=== PATIENT | female | born 1935 | race Caucasian/White ===

== ENCOUNTER 2022-03-07 10:41 | Outpatient (CLI) | payer MEDICARE, BC, SELFPAY | END 2022-03-07 10:42 | disposition home or self-care (01) | LOC: INJ CL 10:42 | PROVIDERS: PCP Family Medicine; Visit Provider Family Medicine | DX: M54.16 Radiculopathy, lumbar region (principal); M48.062 Spinal stenosis, lumbar region with neurogenic claudication | CPT/HCPCS: 62323; J0702; Q9966 ==

== ENCOUNTER 2022-03-29 17:20 | Inpatient (IN) | payer MEDICARE, BC, SELFPAY ==
[2022-03-29] VITALS (10 sets, daily range): BP systolic 86–144; BP diastolic 54–124; PULSE 54–147; RESP 18–20; TEMP 36.6–37; O2SAT 92–96; BMI 23.9; BMI 24.7
--- NOTE | 2022-03-29 17:48 | ED.NURSE ---
1745 #20 sl placed R ac, blood drawn off iv start. ekg done, shows afibe 120's, pt placed on heart monitor.
--- NOTE | 2022-03-29 18:00 | ED_ITS ---
HPI - General Adult General Chief complaint: Arrhythmia/Palpitations Stated complaint: High BP and HR Time Seen by Provider: 03/29/22 17:42 History of Present Illness HPI narrative: This 86-year-old female comes in reporting generalized fatigue for the past several days. She has also had some pedal edema for several weeks. She checked her blood pressure and noted that her heart rate was increased. She does not report any chest pain or lightheadedness. She does have some mild shortness of breath with exertion. Related Data Allergies Allergy/AdvReac Type Severity Reaction Status Date / Time ciprofloxacin [From Cipro] Allergy Verified 03/29/22 17:42 gabapentin Allergy Verified 03/29/22 17:42 minocycline [From Minocin] Allergy Verified 03/29/22 17:42 omnicef Allergy Uncoded 03/29/22 17:42 Review of Systems Status of ROS: Reports: 10 or more systems reviewed and unremarkable except as noted in History and below Narrative: Constitutional: No fevers. She does report some weight gain over the past. Few weeks. Eyes: No discharge. No vision changes. HENT: No congestion, no sore throat, no ear pain. Cardiovascular: No chest pain, no palpitations. Respiratory: No shortness of breath, no wheezes, no cough. Gastrointestinal: No abdominal pain, no vomiting, no diarrhea. Genitourinary: No dysuria, no hematuria. Musculoskeletal: Normal range of motion. Skin: No rashes, no pruritis. Neurological: No dizziness, weakness, sensory change, speech change. Endo/Heme/Allergies: No bruising or bleeding. No polydipsia. Pysch: no suicidality, no anxiety, no insomnia. All other systems reviewed and are negative. PFSH PFS Medical History (Updated 03/29/22 @ 19:12 by Jorden Perez MD) DDD (degenerative disc disease) Hypertension IBS (irritable bowel syndrome) Mitral valve disorder Osteoporosis Surgical History (Updated 03/29/22 @ 18:00 by Shilpa Gonzáles RN) S/P lumbar fusion Social History Smoking Status: Former smoker How often do you have a drink containing alcohol: never AUDIT-C Alcohol total score: 0 Non-prescribed substance use: denies use Exam Narrative: Exam Narrative: Constitutional: Well-developed, well-nourished, no acute distress. HEENT: Normocephalic, atraumatic. Neck: Normal range of motion. Nontender. Supple. Heart: Irregular. No murmurs. Tachycardia. Intact distal pulses. Lungs: Clear to auscultation. No chest discomfort. No wheezes, rhonchi, or rales. Abdomen: Normal bowel sounds. Nontender. No rebound tenderness. Genitalia: Deferred. Back: No midline tenderness. Normal range of motion. Extremities: Normal range of motion. No injury. Bilateral pedal edema. Skin: Intact. No rash. Warm. No erythema or pallor. Neurologic: No altered sensation. No weakness. Alert and oriented. Psychiatric: No suicidality. No anxiety or depression. No insomnia. Nursing notes and vitals signs are reviewed. Const: Vital Signs, click to edit/add: Vital Signs - 24 hr 03/29/22 17:26 03/29/22 18:13 03/29/22 18:38 Temperature 98.6 F Pulse Rate [Apical ] 147 H 104 H 54 L Respiratory Rate 18 20 Blood Pressure [Le ft Upper Arm] 144/124 H 140/108 H 93/54 L Pulse Oximetry 93 92 92 Oxygen Delivery Me thod Room Air Room Air Room Air 03/29/22 18:32 Temperature Pulse Rate [Apical ] 56 L Respiratory Rate 18 Blood Pressure [Le ft Upper Arm] 86/56 L Pulse Oximetry 92 Oxygen Delivery Me thod Room Air Course Vital Signs Vital signs: Initial Vital Signs Temperature 98.6 F 03/29/22 17:26 Temperature Source Temporal Artery Scan 03/29/22 17:26 Pulse Rate 147 H 03/29/22 17:26 Pulse Rhythm 03/29/22 17:26 Respiratory Rate 18 03/29/22 17:26 Blood Pressure 144/124 H 03/29/22 17:26 Blood Pressure Mean 130 03/29/22 17:26 Pulse Oximetry 93 03/29/22 17:26 Oxygen Delivery Method 03/29/22 17:26 Vital Signs Temperature 98.6 F 03/29/22 17:26 Pulse Rate 147 H 03/29/22 17:26 Respiratory Rate 18 03/29/22 17:26 Blood Pressure 144/124 H 03/29/22 17:26 Pulse Oximetry 93 03/29/22 17:26 Oxygen Delivery Method 03/29/22 17:26 Temperature 98.6 F 03/29/22 17:26 Pulse Rate 54 L 03/29/22 18:38 Respiratory Rate 18 03/29/22 18:32 Blood Pressure 93/54 L 03/29/22 18:38 Pulse Oximetry 92 03/29/22 18:38 Oxygen Delivery Method 03/29/22 18:38 Medical Decision Making MDM Narrative Medical decision making narrative: This 86-year-old female arrives with new onset atrial fibrillation with rapid ventricular response. She has not had any chest pain. An IV was established and labs were drawn. The patient received 20 mg of diltiazem intravenously. This brought her heart rate down into the 50s. A bit later her blood pressure also decreased to at 1 point a systolic value of 86. She did have some associated lightheadedness. She then received 500 mL of IV normal saline over 1 hour. Her B type natriuretic peptide is significantly elevated at 2700. I did speak to the hospitalist cardiothoracic surgeon, Dr. Caldwell, who will arrange for her admission for purposes of rate control, anticoagulation, and diuresis. Lab Data Labs: Lab Results 03/29/22 03/29/22 03/29/22 Range/Units 17:45 17:45 17:45 WBC 8.05 (4.50-11.00) K/uL RBC 5.08 (4.00-5.20) m/uL Hgb 14.9 (12.0-16.0) gm/dL Hct 44.1 (33.0-51.0) % MCV 87 (80-100) fL MCH 29 (26-34) pg MCHC 34 (32-36) gm/dL RDW Coeff of Ilsa 13.8 (11.5-15.5) % Plt Count 260 (140-440) K/uL Neut % (Auto) 60.8 (42.0-72.0) % Lymph % (Auto) 19.5 L (20-44) % [place] % (Auto) 13.3 H (0.0-11.0) % Eos % (Auto) 5.5 (0.0-7.0) % Baso % (Auto) 0.7 (0.0-3.0) % Neut # (Auto) 4.89 (1.7-7.0) K/uL Lymph # (Auto) 1.60 (0.90-2.90) K/uL [place] # (Auto) 1.10 H (0.00-0.90) K/UL Eos # (Auto) 0.44 (0.00-0.50) K/uL Baso # (Auto) 0.06 (0.00-0.30) K/uL Abs Immat Gran (auto) 0.02 (0.00-0.30) K/uL INR 1.06 (0.91-1.10) Sodium 131 L (135-149) mmol/L Potassium 4.1 (3.6-5.1) mmol/L Chloride 97 (96-114) mmol/L Carbon Dioxide 23 (20-32) mmol/L BUN 18 (7-30) mg/dL Creatinine 0.8 (0.5-1.5) mg/dL Estimated Creat Clear 33.41 Estimated GFR 72 ml/min Glucose 140 H (60-115) mg/dL Calcium 9.9 (8.4-10.6) mg/dL NT-Pro-B Natriuret Pep (0-450) PG/mL POC Troponin I (0.01-0.04) ng/ml 03/29/22 03/29/22 Range/Units 17:45 17:45 WBC (4.50-11.00) K/uL RBC (4.00-5.20) m/uL Hgb (12.0-16.0) gm/dL Hct (33.0-51.0) % MCV (80-100) fL MCH (26-34) pg MCHC (32-36) gm/dL RDW Coeff of Ilsa (11.5-15.5) % Plt Count (140-440) K/uL Neut % (Auto) (42.0-72.0) % Lymph % (Auto) (20-44) % [place] % (Auto) (0.0-11.0) % Eos % (Auto) (0.0-7.0) % Baso % (Auto) (0.0-3.0) % Neut # (Auto) (1.7-7.0) K/uL Lymph # (Auto) (0.90-2.90) K/uL [place] # (Auto) (0.00-0.90) K/UL Eos # (Auto) (0.00-0.50) K/uL Baso # (Auto) (0.00-0.30) K/uL Abs Immat Gran (auto) (0.00-0.30) K/uL INR (0.91-1.10) Sodium (135-149) mmol/L Potassium (3.6-5.1) mmol/L Chloride (96-114) mmol/L Carbon Dioxide (20-32) mmol/L BUN (7-30) mg/dL Creatinine (0.5-1.5) mg/dL Estimated Creat Clear Estimated GFR ml/min Glucose (60-115) mg/dL Calcium (8.4-10.6) mg/dL NT-Pro-B Natriuret Pep 2720 H (0-450) PG/mL POC Troponin I 0.00 L (0.01-0.04) ng/ml ECG Data Interpretation: Atrial fibrillation with rapid ventricular response. Rate is 126 beats per minute. There are no specific ST or T-wave abnormalities. Discharge Plan Discharge Clinical Impression: Congestive heart failure (CHF), Atrial fibrillation Condition: Unchanged Follow Up/Referrals: Samantha Branch MD [Primary Care Provider] - Stand Alone Forms: [employer] Info Instructions
[2022-03-29 18:08] LABS: Basophils Absolute Auto 0.06 K/uL (0.00-0.30); Basophils Percent Auto 0.7 % (0.0-3.0); Eosinophils Absolute Auto 0.44 K/uL (0.00-0.50); Eosinophils Percent Auto 5.5 % (0.0-7.0); Hematocrit 44.1 % (33.0-51.0); Hemoglobin* 14.9 gm/dL (12.0-16.0); Immature Granulocytes Abs Auto 0.02 K/uL (0.00-0.30); Lymphocytes Percent Auto 19.5 % (20-44); Mean Corpuscular HGB Conc 34 gm/dL (32-36); Mean Corpuscular Hemoglobin 29 pg (26-34); Mean Corpuscular Volume 87 fL (80-100); Monocytes Percent Auto 13.3 % (0.0-11.0); Neutrophils Absolute Auto 4.89 K/uL (1.7-7.0); Neutrophils Percent Auto 60.8 % (42.0-72.0); Platelet Count* 260 K/uL (140-440); RDW Coefficient of Variation % 13.8 % (11.5-15.5); Red Blood Count 5.08 m/uL (4.00-5.20); White Blood Count* 8.05 K/uL (4.50-11.00)
[2022-03-29 18:11] LABS: Slide Review Reflex No
[2022-03-29] MEDS: dilTIAZem 5 MG/ML inj 20 MG IVP (18:15)
[2022-03-29 18:20] LABS: Chloride* 97 mmol/L (96-114); Potassium* 4.1 mmol/L (3.6-5.1); Sodium* 131 mmol/L (135-149)
--- NOTE | 2022-03-29 18:20 | ED.NURSE ---
diltiazem iv given, HR immediately decreased to 70's, rhythm remains a-fib
[2022-03-29 18:23] LABS: Blood Urea Nitrogen* 18 mg/dL (7-30); Calcium* 9.9 mg/dL (8.4-10.6); Carbon Dioxide* 23 mmol/L (20-32); Creatinine* 0.8 mg/dL (0.5-1.5); Est. Creatinine Clearance* 33.41; Estimated Glomerular Filt Rate 72 ml/min; Glucose* 140 mg/dL (60-115)
[2022-03-29 18:24] LABS: INR 1.06 (0.91-1.10); Prothrombin Time 14.2 Seconds
[2022-03-29 18:33] LABS: NT Pro B Type NatriureticPept* 2720 PG/mL (0-450)
[2022-03-29] MEDS: 0.9 % SODIUM CHLORIDE 500 ML 500 ML IV (18:37)
--- NOTE | 2022-03-29 18:37 | ED.NURSE ---
pt HR remains 50-60, bp 86/56. dr. grullon updated. 500 cc ns bolus given.
--- NOTE | 2022-03-29 19:20 | ED.NURSE ---
pt chronic back pain, pt standing up and sitting on bedside. denies dizziness. states feels better standing. dr. marmolejo in seeing pt.
--- NOTE | 2022-03-29 19:57 | W.PC.EDHO ---
Primary Language: Preferred Language: Orientation Status: [x] Alert & Oriented [] Slight Confusion [] Known Dx Dementia Transfers By: [x] Assist of 1 [] Assist of 2 [] Lift Active Medications Discontinued Medications Generic Name Dose Route Start Last Admin Trade Name Tika PRN Reason Stop Dose Admin Diltiazem HCl 20 mg 03/29/22 17:58 03/29/22 18:15 Diltiazem 5 Mg/Ml Inj IVP 03/29/22 17:59 20 mg ONCE ONE Administration Sodium Chloride 500 mls @ 500 mls/hr 03/29/22 18:34 03/29/22 19:23 0.9 % Sodium Chloride 500 Ml IV 03/29/22 19:33 Infused .Q1H ONE Infusion Description of Symptoms ED Triage Present Problem reports that she has been having an elevated bp Description and heart rate at home today. has felt sob some. feels weak, lack of energy, fatigued. comes to ed with her daughter demario. was able to use walker to room. ED Triage Date of Onset of 03/26/22 Symptoms Female History Patient No Pain Pain Radiation Location [Lower to legs Back] Pain Intensity [Lower Back] 7 Pain Scale Used [Lower Back] Numeric (1 - 10) Oxygen Administration Pulse Oximetry 96 Pulse Oximetry 95 Pulse Oximetry 92 Pulse Oximetry 92 Pulse Oximetry 92 Pulse Oximetry 93 Oxygen Delivery Method Room Air Oxygen Delivery Method Room Air Oxygen Delivery Method Room Air Oxygen Delivery Method Room Air Oxygen Delivery Method Room Air Oxygen Delivery Method Room Air Cardiac Monitoring EKG Method Skycatch EKG Method 12 Lead
[2022-03-29 20:09] LABS: SARS PCR* Negative SARS-CoV-2 (Negative)
--- NOTE | 2022-03-29 20:23 | PM.IMHP1 ---
Hospitalist- H&P: HPI History of Present Illness Time Seen by Provider: 20:00 Date Seen: 03/29/22 Chief complaint: High BP and HR Narrative: Susanne Downs is a 86 year old female who presented to the emergency room with her daughter Samantha today after noting an elevated heart rate at home. Susanne endorses feeling poorly for the last 4-5 days, feeling fatigued with intermittent dyspnea. She has also noted worsening of her chronic lower extremity edema over the past few days. Today she checked her BP at home, and noted that her pulse was very elevated. She has not had any dizziness, lightheadedness, or chest pain. Specifically denies orthopnea or PND. No recent illness, no fevers. ER course and findings: - AFib with RVR on EKG - Rate improved after IV diltiazem in the emergency room, then became hypotensive. BP improved with gentle IVF rehydration - sodium 131 (this is her baseline as an outpatient, per chart review) - TSH pending Patient feels better with her lower heart rate. Given new onset atrial fibrillation with RVR, admitted to the hospital for medication management and monitoring. Susanne has no history of atrial fibrillation. Her past medical history lists a remote mitral valve disorder, although she is unable to elaborate on this further. No recent TTE. No history of blood clots. She also has essential hypertension, treated with lisinopril and metoprolol. Other notable medical history includes chronic degenerative disc disease of the lumbar spine. She is status post fusion at L3-L5, and follows with Dr. Hebert of sports medicine regularly. Most recent ADI was 03/07/22 (L1-L2). She takes daily Trinity and Lyrica for pain control. Susanne is , lives independently at [facility], [place]. Her daughter Samantha lives locally and would be medical decision maker if needed. 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 She has had four COVID vaccines. Review of Systems Status of ROS: Reports: 10 or more systems reviewed and unremarkable except as noted in History and below Narrative: Previous history of recurrent UTIs, no recent symptoms. Thinks she has had some weight gain, primarily fluid in nature. [facility] Medical History (Updated 03/29/22 @ 20:34 by Sarah Caldwell MD) Chronic back pain greater than 3 months duration DDD (degenerative disc disease) Hypertension IBS (irritable bowel syndrome) Mitral valve disorder Osteoporosis Surgical History (Updated 03/29/22 @ 18:00 by Shilpa Gonzáles RN) S/P lumbar fusion Social History Smoking Status: Former smoker How often do you have a drink containing alcohol: never AUDIT-C Alcohol total score: 0 Non-prescribed substance use: denies use Meds Home Medications and Allergies Home Medications Medication Instructions Recorded Confirmed Type hydrocodone 7.5 mg-acetaminophen 1 tab PO QID PRN 03/29/22 03/29/22 History 325 mg tablet levothyroxine 75 mcg tablet 75 mcg PO DAILY 03/29/22 03/29/22 History lisinopril 10 mg tablet 10 mg PO DAILY 03/29/22 03/29/22 History metoprolol succinate 100 mg 100 mg PO DAILY 03/29/22 03/29/22 History tablet,extended release 24 hr prednisolone acetate 1 % eye 1 drp ophthalmic (eye) DAILY 03/29/22 03/29/22 History drops,suspension pregabalin 75 mg capsule 75 mg PO Q8H 03/29/22 03/29/22 History Allergies Allergy/AdvReac Type Severity Reaction Status Date / Time cefdinir [From Omnicef] Allergy Unknown Verified 03/29/22 20:10 ciprofloxacin [From Cipro] Allergy Verified 03/29/22 17:42 gabapentin Allergy Verified 03/29/22 17:42 minocycline [From Minocin] Allergy Verified 03/29/22 17:42 Exam Narrative: Exam Narrative: GEN: Alert and oriented, answering questions appropriately. Speaking in full sentences HEENT: Normal external ears, EOMIs bilaterally, no scleral icterus CV: Irregularly irregular rhythm with rate in the 80s during my exam, no concerning murmurs, rubs, or gallops R: Air movement adequate, no wheezing. Fine bibasilar crackles Ext: Edema of bilateral lower extremities, 1 to 2+, up to mid-wolf Skin: No concerning skin lesions or rashes on exposed skin Neuro: Nonfocal, no resting tremor, using walker for ambulation Psych: Appropriate Const: Vital Signs, click to edit/add: Vital Signs - 24 hr 03/29/22 17:26 03/29/22 18:13 03/29/22 18:38 Temperature 98.6 F Pulse Rate [Apical ] 147 H 104 H 54 L Respiratory Rate 18 20 Blood Pressure [Le ft Upper Arm] 144/124 H 140/108 H 93/54 L Pulse Oximetry 93 92 92 Oxygen Delivery Me thod Room Air Room Air Room Air 03/29/22 18:32 03/29/22 19:00 03/29/22 19:30 Temperature Pulse Rate [Apical ] 56 L 65 61 Respiratory Rate 18 18 Blood Pressure [Le ft Upper Arm] 86/56 L 90/70 115/70 Pulse Oximetry 92 95 96 Oxygen Delivery Me thod Room Air Room Air Room Air 03/29/22 20:00 Temperature Pulse Rate [Apical ] 77 Respiratory Rate Blood Pressure [Le ft Upper Arm] 117/71 Pulse Oximetry 95 Oxygen Delivery Me thod Room Air Hospitalist - H&P: Result Labs Labs: Short CBC 03/29/22 Range/Units 17:45 WBC 8.05 (4.50-11.00) K/uL Hgb 14.9 (12.0-16.0) gm/dL Hct 44.1 (33.0-51.0) % Plt Count 260 (140-440) K/uL BMP 03/29/22 17:45 Sodium 131 L Potassium 4.1 Chloride 97 Carbon Dioxide 23 BUN 18 Creatinine 0.8 Glucose 140 H Calcium 9.9 Assessment and Plan Assessment and plan (1) Atrial fibrillation: Status: Acute Assessment and Plan: New onset with RVR in the emergency room. Rate improved with IV diltiazem, then had mild hypotension. Admit to the hospital, telemetry monitoring, start p.o. diltiazem for rate control. Decrease home dose of Metoprolol and hold lisinopril to prevent iatrogenic hypotension. TTE ordered given clinical concern for CHF. Start Lasix in the morning, as patient appears clinically fluid overloaded. Discussion regarding anticoagulation held with patient and daughter. CHADs-VASC score of 4-5, her her patient willing to initiate anticoagulation. After risk and benefit discussion, she would like to initiate Xarelto as an anticoagulant. (2) Chronic back pain greater than 3 months duration: Status: Acute Assessment and Plan: Continue home medications. (3) Hypertension: Status: Acute Assessment and Plan: Med changes per above given iatrogenic hypotension in the emergency room. (4) Hyponatremia: Status: Acute Assessment and Plan: Chronic per chart review, may improve with diuresis and CHF management. Plan Dispo: Patient lives independently, plans to return to her apartment upon discharge. Social work consult placed as she may need some assistance upon discharge (home health, meals on wheels, etc) Prophylaxis: Xarelto per above Code: Patient requests full code status
[2022-03-29] MEDS: PREGABALIN 75 MG CAPSULE PO (21:59)
[2022-03-29] MEDS: dilTIAZem 120 MG CAP.ER.24H PO (21:59)
[2022-03-29] MEDS: HYDROCODONE/ACETAMIN 7.5-325 TABLET 1 TAB PO (22:00)
[2022-03-29] MEDS: RIVAROXABAN 10 MG TABLET 20 MG PO (22:00)
[2022-03-30] MEDS: HYDROCODONE/ACETAMIN 7.5-325 TABLET 1 TAB PO ×3 (03:54→18:30)
[2022-03-30 03:56] VITALS: BP 136/82; PULSE 78; RESP 16; TEMP 36.4; O2SAT 91
--- NOTE | 2022-03-30 05:55 | PC.NURSE ---
ADMISSION/SHIFT NOTE: Pt to room 257 for new onset afib. Pt A&O, cooperative, up SBA with walker and tolerating well. PRN [place] and scheduled Lyrica given for chronic back/leg pain with pt reporting relief. Tele reads a-fib, rate controlled. Pt denies CP. Pt has slight SOB with exertion that improves at rest. Denies N/V.
[2022-03-30 07:00] VITALS: BP 150/91; PULSE 73; PULSE 88; RESP 20; TEMP 36.6; O2SAT 93
[2022-03-30] MEDS: LEVOTHYROXINE 75 MCG TABLET PO (07:23)
[2022-03-30] MEDS: PREGABALIN 75 MG CAPSULE PO ×2 (09:08→17:35)
[2022-03-30] MEDS: dilTIAZem 120 MG CAP.ER.24H PO (09:08)
[2022-03-30] MEDS: FUROSEMIDE 40 MG TABLET PO (09:08)
[2022-03-30 11:00] VITALS: BP 125/62; PULSE 56; RESP 18; TEMP 36.6; O2SAT 94
[2022-03-30] MEDS: lisinopriL 5 MG TABLET PO (12:21)
[2022-03-30] MEDS: METOPROLOL SUCCINATE (XL) 50 MG TAB PO (12:21)
--- NOTE | 2022-03-30 13:03 | PM.IMPN1 ---
Progress Note: A&P Assessment and plan (1) Atrial fibrillation: Status: Acute Assessment and Plan: 1. Rate now controlled. Currently on diltiazem extended release 120 mg once daily. 2. She was started on rivaroxaban for anticoagulation yesterday and tolerating. Continue the same. (2) Chronic back pain greater than 3 months duration: Status: Acute (3) Hypertension: Status: Acute Assessment and Plan: 1. Her metoprolol succinate 100 mg daily doses currently on hold. I will decrease this dose by 50%. 2. Her lisinopril dose is also currently on hold. I will also decrease this by 50%. (4) Hyponatremia: Status: Acute Assessment and Plan: 1. Reportedly this is a long standing problem for her and stable. (5) Congestive heart failure (CHF): Status: Acute Assessment and Plan: 1. Initiate furosemide today. 2. Daily weights. 3. Obtain transthoracic echocardiogram today. Plan 1. Reviewed my impressions with the patient. Answered her questions to her satisfaction. 2. Continue with above stated plans and recommendations for now. 3. If her condition continues to stabilize it is possible she might be ready to be discharged home as early as tomorrow with appropriate outpatient follow-up. 4. Patient agreeable to above stated plans and recommendations. Time Spent With Patient Total time spent: 30 minutes Subjective Time Seen by Provider: 08:00 Date Seen: 03/30/22 Interval history: Hospital day 2. Dyspnea with exertion has not improved. Dyspnea has not worsened either. Denies paroxysmal nocturnal dyspnea orthopnea. Did not sleep much last night, mainly because of the new surroundings in the hospital. Denies chest heaviness, pressure, tightness, or pain. Denies syncope or near-syncope. Denies orthostasis. Denies nausea or vomiting. Denies palpitations. Edema of lower extremities has not worsened or improved. Exam Narrative: Exam Narrative: Does not appear to be in any acute distress. Certainly has tachypnea with mild exertion including ambulating from bathroom sink back to her bed when I was assessing her. With this minimal amount of exertion her respiratory rate was up to 24. Alert, oriented to self, place, time, situation. Articulate. Cooperative. Friendly. Mood and affect are congruent. No icterus or jaundice. In the upright position she has no jugular venous distention or hepatojugular reflux. Also has no carotid bruits. Lungs actually are clear to auscultation. No wheezing, rhonchi, or rales. No CVA tenderness. Heart tones with irregular rhythm. Normal S1-S2. No obvious murmur, gallop, or rub. Heart tones are distant. Abdomen with active bowel sounds, soft, nontender. Extremities with trace edema pretibially bilaterally. Palpable pulses upper and lower extremities. Skin is warm, dry, intact. No obvious focal motor neurologic deficits. No tremor, asterixis, or ataxia. Const: Vital Signs, click to edit/add: Vital Signs - 24 hr 03/29/22 17:26 03/29/22 18:13 03/29/22 18:38 Temperature 98.6 F Pulse Rate Pulse Rate [Apical ] 147 H 104 H 54 L Respiratory Rate 18 20 Blood Pressure [Le ft Radial Artery] Blood Pressure [Le ft Upper Arm] 144/124 H 140/108 H 93/54 L Pulse Oximetry 93 92 [facility] Room Air 03/29/22 18:32 03/29/22 19:00 03/29/22 19:30 Temperature Pulse Rate Pulse Rate [Apical ] 56 L 65 61 Respiratory Rate 18 18 Blood Pressure [Le ft Radial Artery] Blood Pressure [Le ft Upper Arm] 86/56 L 90/70 115/70 Pulse Oximetry 92 95 96 Oxygen Delivery [facility] Room Air Room Air Room Air 03/29/22 20:00 03/29/22 20:58 03/29/22 20:58 Temperature 97.9 F Pulse Rate Pulse Rate [Apical ] 77 Respiratory Rate 20 18 Blood Pressure [Le ft Radial Artery] Blood Pressure [Le ft Upper Arm] 117/71 Pulse Oximetry 95 94 95 Oxygen Delivery [facility] Room Air Room Air Room Air 03/29/22 23:21 03/29/22 20:10 03/29/22 23:49 Temperature Pulse Rate 73 Pulse Rate [Apical ] Respiratory Rate 18 Blood Pressure [Le ft Radial Artery] Blood Pressure [Le ft Upper Arm] Pulse Oximetry 94 Oxygen Delivery [facility] Room Air Room Air 03/30/22 03:56 03/30/22 07:00 03/30/22 07:00 Temperature 97.5 F L Pulse Rate 73 Pulse Rate [Apical ] 78 73 Respiratory Rate 16 Blood Pressure [Le ft Radial Artery] 136/82 Blood Pressure [Le ft Upper Arm] Pulse Oximetry 91 Oxygen Delivery Me thod Room Air 03/30/22 07:00 Temperature 97.8 F Pulse Rate Pulse Rate [Apical ] 88 Respiratory Rate 20 Blood Pressure [Le ft Radial Artery] 150/91 H Blood Pressure [Le ft Upper Arm] Pulse Oximetry 93 Oxygen Delivery Me thod Room Air Labs Labs: Laboratory Results - last 24 hr 03/29/22 03/29/22 03/29/22 17:45 17:45 17:45 WBC 8.05 RBC 5.08 Hgb 14.9 Hct 44.1 MCV 87 MCH 29 MCHC 34 RDW Coeff of Ilsa 13.8 Plt Count 260 Neut % (Auto) 60.8 Lymph % (Auto) 19.5 L [place] % (Auto) 13.3 H Eos % (Auto) 5.5 Baso % (Auto) 0.7 Neut # (Auto) 4.89 Lymph # (Auto) 1.60 [place] # (Auto) 1.10 H Eos # (Auto) 0.44 Baso # (Auto) 0.06 Abs Immat Gran (auto) 0.02 INR 1.06 Sodium 131 L Potassium 4.1 Chloride 97 Carbon Dioxide 23 BUN 18 Creatinine 0.8 Estimated Creat Clear 33.41 Estimated GFR 72 Glucose 140 H Calcium 9.9 NT-Pro-B Natriuret Pep TSH SARS-CoV-2 (PCR) POC Troponin I 03/29/22 03/29/22 03/29/22 17:45 17:45 17:45 WBC RBC Hgb Hct MCV MCH MCHC RDW Coeff of Ilsa Plt Count Neut % (Auto) Lymph % (Auto) [place] % (Auto) Eos % (Auto) Baso % (Auto) Neut # (Auto) Lymph # (Auto) [place] # (Auto) Eos # (Auto) Baso # (Auto) Abs Immat Gran (auto) INR Sodium Potassium Chloride Carbon Dioxide BUN Creatinine Estimated Creat Clear Estimated GFR Glucose Calcium NT-Pro-B Natriuret Pep 2720 H TSH 4.950 H SARS-CoV-2 (PCR) POC Troponin I 0.00 L 03/29/22 19:06 WBC RBC Hgb Hct MCV MCH MCHC RDW Coeff of Ilsa Plt Count Neut % (Auto) Lymph % (Auto) [place] % (Auto) Eos % (Auto) Baso % (Auto) Neut # (Auto) Lymph # (Auto) [place] # (Auto) Eos # (Auto) Baso # (Auto) Abs Immat Gran (auto) INR Sodium Potassium Chloride Carbon Dioxide BUN Creatinine Estimated Creat Clear Estimated GFR Glucose Calcium NT-Pro-B Natriuret Pep TSH SARS-CoV-2 (PCR) Negative SARS-CoV-2 POC Troponin I
--- NOTE | 2022-03-30 14:02 | NUTR.NU ---
WENCESLAON with MD consult for CHF. RDN visited with patient whom agreed to receive nutrition education without designated caregiver present. Nutrition education provided on a low sodium diet related to congestive heart failure.? Verbal and written information provided. Recommend limiting sodium to 2,000 mg per day.? Discussed foods recommended and to avoid.? Handouts provided from [facility] on heart failure nutrition therapy, sodium content of foods, heart healthy label reading tips, sodium-free flavoring tips and heart healthy cooking and shopping tips.?Patient verbalized understanding.?RDN's contact information was provided and patient was encouraged to call with questions.?
[2022-03-30 15:00] VITALS: BP 127/76; PULSE 47; PULSE 59; RESP 18; TEMP 37.1; O2SAT 93
[2022-03-30] MEDS: RIVAROXABAN 10 MG TABLET 20 MG PO (17:37)
[2022-03-30 19:00] VITALS: BP 118/62; PULSE 74; RESP 16; TEMP 36.4; O2SAT 94
--- NOTE | 2022-03-30 19:19 | PC.NURSE ---
shift note: pt up indept in room. Pt states while ambulating in [place] this afternoon she became lightheaded and sob. Patient informed Dr. Caldwell. No changes to poc initiated. Pt has irreg Hr with rates varying 50-85. Pt denies c.p or pressure. Pt medicated with norco for chronic lower back pain and lt l/e pain. Iv site intact. pt had echo this afternoon and results reviewed with pt by Dr. Caldwell
--- NOTE | 2022-03-30 22:09 | PC.NURSE ---
[id number]: Pt up IND in room. Chronic Back Pain controlled with movement and Q6 [place]. Oriented x3. Tele Afib with RVR.
[2022-03-30 23:00] VITALS: BP 117/71; PULSE 72; RESP 16; TEMP 36.4; O2SAT 94
[2022-03-31] VITALS (9 sets, daily range): BP systolic 114–140; BP diastolic 45–97; PULSE 40–112; RESP 16–20; TEMP 36.3–36.7; O2SAT 93–94
[2022-03-31] MEDS: PREGABALIN 75 MG CAPSULE PO ×4 (01:16→19:48)
[2022-03-31] MEDS: HYDROCODONE/ACETAMIN 7.5-325 TABLET 1 TAB PO ×4 (01:16→19:47)
--- NOTE | 2022-03-31 06:55 | PC.NURSE ---
Alert and oriented x3. Vitals stable on room air. Self ambulatory in the room. Lower back pain managed with Newman and Lyrica. On continuous tele overnight; stable afib rate noted. No new changes noted
[2022-03-31 07:55] LABS: Sodium* 127 mmol/L (135-149)
[2022-03-31] MEDS: LEVOTHYROXINE 75 MCG TABLET PO (07:59)
[2022-03-31 08:04] LABS: NT Pro B Type NatriureticPept* 1370 PG/mL (0-450)
[2022-03-31 08:07] LABS: Hemoglobin A1C* 5.49 % (0-5.6)
[2022-03-31] MEDS: dilTIAZem 120 MG CAP.ER.24H PO (09:21)
[2022-03-31] MEDS: lisinopriL 5 MG TABLET PO (09:22)
[2022-03-31] MEDS: METOPROLOL SUCCINATE (XL) 50 MG TAB PO (09:22)
[2022-03-31] MEDS: FUROSEMIDE 10 MG/ML inj 40 MG IVP (10:30)
[2022-03-31] MEDS: prednisoLONE acetate 1 % DROPS 1 DROP EYE-BOTH (10:37)
--- NOTE | 2022-03-31 11:56 | P.IMPN_ITS ---
Progress Note: A&P Assessment and plan (1) Atrial fibrillation with rapid ventricular response: Status: Acute (2) Diastolic congestive heart failure, NYHA class 3: Status: Acute (3) Hyponatremia: Status: Acute (4) Hypertension: Status: Acute (5) Chronic back pain greater than 3 months duration: Status: Acute Plan 1. Reviewed impression with patient. Answered her questions. 2. Will attempt increasing diuretic today. Did not respond well to the furosemide 40 mg p.o. given yesterday morning. Will give furosemide 40 mg IV this morning. Will make a decision about dosing of furosemide tomorrow depending on her response to today's dosing. 3. Monitor her heart rate and blood pressure closely. Should her heart rate start to increase may need to check orthostatic blood pressures and pulses to make sure that were not causing too much intravascular volume depletion. 4. Additionally, may need to increase her negative chronotropic stimulation if her blood pressure is sufficiently safe. Will monitor throughout the day and make a decision. Currently on diltiazem extended release 120 mg once daily and metoprolol succinate 50 mg once daily for rate control. May need to consider resuming her metoprolol succinate dose as sheep presented to the hospital with at 100 mg daily. May need to consider doubling the diltiazem dose to 120 mg once daily as well. May also need to consider the possibility of placing her on a 3rd negative chronotropic agent, such as digoxin. 5. Because of her falling serum sodium, will restrict her fluid restriction to 1500 mL per day. Additionally with the furosemide dosing which excretes water preferentially to sodium, I anticipate her serum sodium should start to rise by tomorrow. 6. Continue to monitor labs. Time Spent With Patient Total time spent: 30 minutes Subjective Time Seen by Provider: 09:00 Date Seen: 03/31/22 Interval history: Hospital day number 3. Patient states she feels a little more dyspneic with exertion today. She denies dyspnea at rest. Denies paroxysmal nocturnal dyspnea or orthopnea. Feels like she has more edema of her lower extremities, she states she feels like the skin is more tight on her toes in the top of her feet. Denies chest heaviness or pressure or tightness or pain. Denies orthostasis. Denies syncope or near- syncope. Bowel and bladder functioning satisfactorily and she denies concerns. Exam Narrative: Exam Narrative: Weight this morning is 139.6 lb or 63.5 kg. This is up about 2 kg from yesterday. Does not appear ill. Appears somewhat anxious. No acute distress. Alert and oriented to self, place, time, situation. Cooperative, friendly, articulate. Mood and affect are congruent. In the sitting upright position I am not able to see jugular venous distension or illicit hepatojugular reflux. No carotid bruits. Lungs actually are clear to auscultation without wheezing, rhonchi, or rales. Heart tones with irregular rhythm, normal S1-S2, no obvious murmur, gallop, or rub. Trace edema pretibially and pre pedal E bilaterally. Independent transfer, station, and gait. No obvious focal motor neurologic deficits. No tremor, asterixis, or ataxia. Skin is warm, dry, intact. No petechiae, rashes, cyanosis, or jaundice. No icterus. Const: Vital Signs, click to edit/add: Vital Signs - 24 hr 03/30/22 15:00 03/30/22 15:00 03/30/22 15:00 Temperature 98.7 F Pulse Rate 59 L Pulse Rate [Apical ] 59 L 47 L Respiratory Rate 18 Blood Pressure [Le ft Radial Artery] 127/76 Pulse Oximetry 93 Oxygen Delivery Ia thod Room Air 03/30/22 19:00 03/30/22 23:00 03/30/22 23:00 Temperature 97.6 F Pulse Rate 72 Pulse Rate [Apical ] 74 72 Respiratory Rate 16 16 Blood Pressure [Le ft Radial Artery] 118/62 Pulse Oximetry 94 Oxygen Delivery Ia thod Room Air 03/30/22 23:00 03/31/22 03:00 03/31/22 07:50 Temperature 97.6 F 97.6 F Pulse Rate 69 Pulse Rate [Apical ] 72 103 H Respiratory Rate 16 16 Blood Pressure [Le ft Radial Artery] 117/71 136/93 H Pulse Oximetry 94 94 Oxygen Delivery Ia thod Room Air Room Air 03/31/22 07:50 03/31/22 07:50 03/31/22 10:30 Temperature 97.3 F L 97.4 F L Pulse Rate Pulse Rate [Apical ] 103 H 103 H 97 Respiratory Rate 20 20 18 Blood Pressure [Le ft Radial Artery] 140/73 H 114/57 L Pulse Oximetry 93 94 Oxygen Delivery Ia thod Room Air Room Air Documenting provider has reviewed patient's vital signs: yes Labs Labs: Laboratory Results - last 24 hr 03/29/22 03/31/22 03/31/22 17:45 06:17 06:17 Sodium 127 L Hemoglobin A1c 5.49 Magnesium 2.0 NT-Pro-B Natriuret Pep 1370 H
--- NOTE | 2022-03-31 17:29 | PC.SOCIAL ---
Social work: Met with pt and dtr in the room regarding d/c plan. Both agree plan is for pt to return home at discharge to her apartment at [facility]. Pt states things were going well for her at home prior to hospital admission and she expects to be able to meet her needs at home at discarge. Pt states she had looked into signing up for [id number] but was told the route she is on is full. shine worker called and placed pt on waiting list for [id number] and offered a resource list of other meal delivery services. Dtr states she has already located a few and will follow up as needed. Pt and dtr aware of how to contact social sciences chair if needed.
[2022-03-31] MEDS: RIVAROXABAN 10 MG TABLET 20 MG PO (18:04)
--- NOTE | 2022-03-31 19:40 | PC.NURSE ---
0: Pt. up in room w/walker independently, w/SBA in hallway. Tolerating activity well. Up to chair, but opted to spend most of shift in bed. Pain 3-03/05 treated w/PRN [place] x2 today. Daughter present this afternoon. IV Lasix given this AM after pt c/o wheezing while laying flat, though lungs clear to auscultation, and +2 pitting edema to bilat. lower legs. TEDS placed on this morning during assessment. Tele showing a-fib w/normal rate to a-fib w/RVR at times. HR between 60s-120s. Pt. walked in halls w/daughter w/out issue. BM this shift. 1100 cc clear urine out after IV dose of Lasix. Pt. placed on 1500cc fluid restriction this morning.
[2022-04-01 00:07] VITALS: PULSE 77
[2022-04-01 03:00] VITALS: PULSE 72; RESP 16; O2SAT 96
--- NOTE | 2022-04-01 05:28 | PC.NURSE ---
Shift Note : Pt pleasant and cooperative, VSS, afebrile, chronic pain present, controlled with [place]. Tele shows afib, rate has been controlled to <100 while at rest. Pt up ad brad in the room with 4 wheeled walker.
[2022-04-01] MEDS: LEVOTHYROXINE 75 MCG TABLET PO (05:49)
[2022-04-01] MEDS: HYDROCODONE/ACETAMIN 7.5-325 TABLET 1 TAB PO ×2 (05:54→12:06)
[2022-04-01 07:00] VITALS: BP 136/68; PULSE 90; RESP 16; TEMP 36.3; O2SAT 95
[2022-04-01 07:13] LABS: Hemoglobin* 13.4 gm/dL (12.0-16.0)
[2022-04-01 07:29] LABS: Albumin* 4.1 g/dL (3.3-5.0); Chloride* 92 mmol/L (96-114); Potassium* 3.7 mmol/L (3.6-5.1); Sodium* 125 mmol/L (135-149)
[2022-04-01 07:30] VITALS: PULSE 61
[2022-04-01 07:31] LABS: Creatinine* 0.6 mg/dL (0.5-1.5); Est. Creatinine Clearance* 33.41; Estimated Glomerular Filt Rate 87 ml/min
[2022-04-01 07:32] LABS: Blood Urea Nitrogen* 11 mg/dL (7-30); Calcium* 8.7 mg/dL (8.4-10.6); Carbon Dioxide* 22 mmol/L (20-32); Glucose* 104 mg/dL (60-115); Phosphorus* 2.2 mg/dL (2.5-4.5)
[2022-04-01 07:37] LABS: NT Pro B Type NatriureticPept* 1490 PG/mL (0-450)
[2022-04-01 07:42] LABS: Troponin I* < 0.01 ng/mL (0.01-0.04)
[2022-04-01] MEDS: PREGABALIN 75 MG CAPSULE PO ×2 (09:37→14:48)
[2022-04-01] MEDS: METOPROLOL SUCCINATE (XL) 50 MG TAB PO (09:37)
[2022-04-01] MEDS: TORSEMIDE 20 MG TABLET PO (09:38)
[2022-04-01] MEDS: lisinopriL 5 MG TABLET PO (09:38)
[2022-04-01] MEDS: SODIUM CHLORIDE 1 GM TABLET PO ×2 (09:39→12:06)
[2022-04-01] MEDS: dilTIAZem 120 MG CAP.ER.24H PO (09:39)
--- NOTE | 2022-04-01 11:14 | PM.IMPN1 ---
Progress Note: A&P Assessment and plan (1) Atrial fibrillation with rapid ventricular response: Status: Acute Assessment and Plan: Rate control improved. On anticoagulation. (2) Diastolic congestive heart failure, NYHA class 3: Status: Acute Assessment and Plan: Echocardiogram shows preserved ejection fraction. No severe valvular disease (3) Hyponatremia: Status: Acute Assessment and Plan: She is mildly volume overloaded with edema in her legs which is chronic. The cause for her hyponatremia is uncertain at this time. Heart failure is likely a contributor but does not necessarily explain the degree of hyponatremia. Now on a fluid restriction. Will add in torsemide, loop diuretic and sodium chloride. Continue to monitor. Plan Continue to monitor AFib, blood pressure and pulse, edema, sodium, discharge possibly in the next day if improving. Will need outpatient follow-up for these problems. Time Spent With Patient Total time spent: Total time spent today is 40 minutes, 30 minutes in coordination of care discussing with the patient and other providers management of hyponatremia, AFib, heart failure. Subjective Date Seen: 04/01/22 Interval history: 86-year-old female seen in hospital admission for atrial fibrillation with RVR and hyponatremia. She was admitted to the hospital when she was seen to be in atrial fibrillation with rapid ventricular rate. She has received diltiazem in addition to metoprolol and with this as gotten fairly good rate control. She is asymptomatic when she is walking in the hallway. She has tolerated this with her vital signs as well. She has also been found to be hyponatremic. The cause for this is uncertain. She has had borderline low sodiums in the past. She is not known to have any history of significant heart disease, liver disease or renal disease. She is not on any medications suspected to cause hyponatremia. She does have chronic lower extremity edema which is a little worse than usual. She has been advised to wear support hose to manage this but finds that difficult to manage at home. Exam Narrative: Exam Narrative: She is alert no distress. She gives her own history. She is oriented to her circumstances. Respirations are clear to auscultation. No wheezing rales or rhonchi. Cardiovascular: S1, S2, irregularly irregular. No murmur gallop or rub. Abdomen: Bowel sounds active. Abdomen is soft without tenderness or mass. Extremities with support hose in place. 2+ edema in both legs. She has tenderness with palpation of her edema. Const: Vital Signs, click to edit/add: Vital Signs - 24 hr 03/31/22 12:02 03/31/22 14:25 03/31/22 14:25 Temperature 98.1 F Pulse Rate Pulse Rate [Apical ] 78 78 Pulse Rate [orthos tatic lying Right Pulse Oximeter] 106 H Pulse Rate [orthos tatic sitting Righ t Pulse Oximeter] 112 H Pulse Rate [orthos tatic standing Rig ht Pulse Oximeter] 107 H Respiratory Rate 18 18 Blood Pressure [Le ft Radial Artery] 124/80 Blood Pressure [or thostatic lying Ri ght Arm] 116/80 Blood Pressure [or thostatic sitting Right Arm] 124/97 H Blood Pressure [or thostatic standing Right Arm] 140/65 H Pulse Oximetry 94 Oxygen Delivery Me thod Room Air 03/31/22 15:00 03/31/22 15:00 03/31/22 17:22 Temperature Pulse Rate 104 H 40 L Pulse Rate [Apical ] Pulse Rate [orthos tatic lying Right Pulse Oximeter] Pulse Rate [orthos tatic sitting Righ t Pulse Oximeter] Pulse Rate [orthos tatic standing Rig ht Pulse Oximeter] Respiratory Rate Blood Pressure [Le ft Radial Artery] Blood Pressure [or thostatic lying Ri ght Arm] Blood Pressure [or thostatic sitting Right Arm] Blood Pressure [or thostatic standing Right Arm] Pulse Oximetry 94 Oxygen Delivery Me thod Room Air 03/31/22 19:52 03/31/22 23:00 03/31/22 23:00 Temperature 97.4 F L Pulse Rate Pulse Rate [Apical ] 87 77 Pulse Rate [orthos tatic lying Right Pulse Oximeter] Pulse Rate [orthos tatic sitting Righ t Pulse Oximeter] Pulse Rate [orthos tatic standing Rig ht Pulse Oximeter] Respiratory Rate 16 16 16 Blood Pressure [Le ft Radial Artery] 116/45 L Blood Pressure [or thostatic lying Ri ght Arm] Blood Pressure [or thostatic sitting Right Arm] Blood Pressure [or thostatic standing Right Arm] Pulse Oximetry 94 94 Oxygen Delivery Me thod Room Air Room Air 04/01/22 00:07 03/31/22 23:00 04/01/22 03:00 Temperature Pulse Rate 77 Pulse Rate [Apical ] 77 72 Pulse Rate [orthos tatic lying Right Pulse Oximeter] Pulse Rate [orthos tatic sitting Righ t Pulse Oximeter] Pulse Rate [orthos tatic standing Rig ht Pulse Oximeter] Respiratory Rate 16 16 Blood Pressure [Le ft Radial Artery] Blood Pressure [or thostatic lying Ri ght Arm] Blood Pressure [or thostatic sitting Right Arm] Blood Pressure [or thostatic standing Right Arm] Pulse Oximetry 94 96 Oxygen Delivery Me thod Room Air Room Air 04/01/22 07:30 04/01/22 07:00 04/01/22 07:00 Temperature Pulse Rate 61 Pulse Rate [Apical ] 90 Pulse Rate [orthos tatic lying Right Pulse Oximeter] Pulse Rate [orthos tatic sitting Righ t Pulse Oximeter] Pulse Rate [orthos tatic standing Rig ht Pulse Oximeter] Respiratory Rate 16 16 Blood Pressure [Le ft Radial Artery] Blood Pressure [or thostatic lying Ri ght Arm] Blood Pressure [or thostatic sitting Right Arm] Blood Pressure [or thostatic standing Right Arm] Pulse Oximetry 95 Oxygen Delivery Me thod Room Air 04/01/22 07:00 Temperature 97.4 F L Pulse Rate Pulse Rate [Apical ] 90 Pulse Rate [orthos tatic lying Right Pulse Oximeter] Pulse Rate [orthos tatic sitting Righ t Pulse Oximeter] Pulse Rate [orthos tatic standing Rig ht Pulse Oximeter] Respiratory Rate 16 Blood Pressure [Le ft Radial Artery] 136/68 Blood Pressure [or thostatic lying Ri ght Arm] Blood Pressure [or thostatic sitting Right Arm] Blood Pressure [or thostatic standing Right Arm] Pulse Oximetry 95 Oxygen Delivery Me thod Room Air Documenting provider has reviewed patient's vital signs: yes Labs Labs: Laboratory Results - last 24 hr 04/01/22 04/01/22 06:33 06:33 Hgb 13.4 Sodium 125 L Potassium 3.7 Chloride 92 L Carbon Dioxide 22 BUN 11 Creatinine 0.6 Estimated Creat Clear 33.41 Estimated GFR 87 Glucose 104 Calcium 8.7 Phosphorus 2.2 L Troponin I < 0.01 L NT-Pro-B Natriuret Pep 1490 H Albumin 4.1
--- NOTE | 2022-04-01 13:09 | PC.NURSE ---
Addendum entered by Ying Torres RN 04/01/22 19:11: Pt. tolerated activity rest of the day well. D/C orders received after 1500 lab draw- sodium 128. Prescriptions called into [facility], son-in-law picked up meds for pt. Discussed at length new medications/med changes. Daughter plans to help pt. set up med box when she goes home. Educated on benefit of GIL stocking use. IV removed w/tip intact, and pt. opted to walk w/her walker from unit to vehicle. Left unit around 1800 w/belongings. Original Note: 5100-3027: Pt. up independent in room w/walker. Chronic pain rated up to 6/10, alleviated with PRN [place]. Notes R sided sciatica painful today, but able to walk in hallway w/SBA. Tolerated this quite well, but noted mild SOB at end of walk, recovering quickly. O2 sats low 90s upon return to room. HR noted to be into one-teens and -twenties during walk, otherwise mostly 70s-90s. Sodium supplements started this morning for sodium level of 125. Informed lab of scheduled 1500 draw. Edema +2 to b/l lower extremities; TEDS on. Urine noted to be cloudy compared to yesterday, updated; no new orders at this time. Pt. oriented to self, date, not day of week.
[2022-04-01 14:30] VITALS: BP 112/70; PULSE 86; RESP 18; TEMP 36.3; O2SAT 94
[2022-04-01] MEDS: DOCUSATE SODIUM 100 MG CAPSULE PO (14:48)
[2022-04-01 16:02] LABS: Chloride* 91 mmol/L (96-114)
[2022-04-01 16:03] LABS: Potassium* 3.5 mmol/L (3.6-5.1); Sodium* 128 mmol/L (135-149)
[2022-04-01 16:05] LABS: Creatinine* 0.8 mg/dL (0.5-1.5); Est. Creatinine Clearance* 33.41; Estimated Glomerular Filt Rate 72 ml/min
[2022-04-01 16:06] LABS: Blood Urea Nitrogen* 13 mg/dL (7-30); Calcium* 8.9 mg/dL (8.4-10.6); Carbon Dioxide* 30 mmol/L (20-32); Glucose* 98 mg/dL (60-115)
--- NOTE | 2022-04-01 16:23 | P.DS_ITS ---
DS: Providers Provider Date Seen: 04/01/22 Date of admission: 03/29/22 20:15 Primary care physician: Samantha Branch MD Admitting Clinician: Sarah Caldwell MD Date of Discharge: 04/01/22 DS: Diagnosis Discharge Diagnosis (1) Atrial fibrillation with rapid ventricular response: Status: Acute Problem details: On rate control and anticoagulation (2) Hyponatremia: Status: Acute Problem details: uncertain cause. Needs close outpatient follow up (3) Edema: Status: Acute Problem details: chronic DS: Summary Hospital Course Hospital Course: Patient admitted with afib with RVR. Rate controlled with diltiazem and metoprolol. Started on rivaroxaban for stroke prophylaxis. Tolerating this well. Developed hyponatremia with Na down to 125. cause uncertain. On torsemide and sodium chloride tablets. Needs close outpatient followup. Status at Discharge Functional status at discharge: independent ambulation Overall status at discharge: patient is back to baseline Time Spent with Patient Time attestation: Total time spent providing and/or coordinating discharge services: Time spent: Greater than 30 minutes Exam Narrative: Exam Narrative: Ambulating comfortably this afternoon Const: Vital Signs, click to edit/add: Vital Signs - 24 hr 03/31/22 17:22 03/31/22 19:52 03/31/22 23:00 Temperature 97.4 F L Pulse Rate 40 L Pulse Rate [Apical ] 87 77 Respiratory Rate 16 16 Blood Pressure [Le ft Radial Artery] 116/45 L Pulse Oximetry 94 Oxygen Delivery Me thod Room Air 03/31/22 23:00 04/01/22 00:07 03/31/22 23:00 Temperature Pulse Rate 77 Pulse Rate [Apical ] 77 Respiratory Rate 16 16 Blood Pressure [Le ft Radial Artery] Pulse Oximetry 94 94 Oxygen Delivery Me thod Room Air Room Air 04/01/22 03:00 04/01/22 07:30 04/01/22 07:00 Temperature Pulse Rate 61 Pulse Rate [Apical ] 72 90 Respiratory Rate 16 16 Blood Pressure [Le ft Radial Artery] Pulse Oximetry 96 Oxygen Delivery Me thod Room Air 04/01/22 07:00 04/01/22 07:00 Temperature 97.4 F L Pulse Rate Pulse Rate [Apical ] 90 Respiratory Rate 16 16 Blood Pressure [Le ft Radial Artery] 136/68 Pulse Oximetry 95 95 Oxygen Delivery Me thod Room Air Room Air Documenting provider has reviewed patient's vital signs: yes DS: Data Data Completed and Pending Labs on day of discharge: Labs from last 24 hours 04/01/22 04/01/22 04/01/22 15:46 06:33 06:33 Hgb 13.4 Sodium 128 L 125 L Potassium 3.5 L 3.7 Chloride 91 L 92 L Carbon Dioxide 30 22 BUN 13 11 Creatinine 0.8 0.6 Estimated Creat Clear 33.41 33.41 Estimated GFR 72 87 Glucose 98 104 Calcium 8.9 8.7 Phosphorus 2.2 L Troponin I < 0.01 L NT-Pro-B Natriuret Pep 1490 H Albumin 4.1 Discharge Plan Discharge Disposition: Home, Self-Care Date of Admission: 03/29/22 20:15 Attending Provider on Discharge: Austen Banks Primary Care Provider: Samantha Branch Condition: Unchanged Anticipated Discharge Date/Time: 04/01/22 16:29 Discharge Medications: New diltiazem HCl 120 mg capsule,extended release 24 hr 120 mg PO DAILY Qty: 30 2RF Xarelto 10 mg Tablet 20 mg PO DAILY@1800 Qty: 30 0RF sodium chloride 1,000 mg Tablet,Soluble 1,000 mg PO BIDWMEAL Qty: 60 0RF torsemide 20 mg Tablet 20 mg PO DAILY Qty: 30 0RF Continued hydrocodone-acetaminophen 7.5-325 mg tablet 1 tab PO QID PRN Label Comments: TAKE ONE TABLET BY MOUTH UP TO FOUR TIMES A DAY NEEDED FOR PAIN - MAX ACETAMINOPHEN DOSE: 4000MG IN 24 HRS. levothyroxine 75 mcg tablet 75 mcg PO DAILY Label Comments: TAKE 1 TABLET (75 MCG) BY MOUTH BEFORE BREAKFAST. prednisolone acetate 1 % drops,suspension 1 drp OPHTHALMIC (EYE) DAILY Label Comments: INSTILL 1 DROP INTO BOTH EYES ONCE EVERY OTHER DAY pregabalin 75 mg capsule 75 mg PO TID Label Comments: TAKE ONE CAPSULE BY MOUTH THREE TIMES DAILY Changed metoprolol succinate 100 mg tablet extended release 24 hr 50 mg PO DAILY Qty: 30 0RF Label Comments: TAKE 1 TABLET (100 MG) BY MOUTH ONCE DAILY. lisinopril 10 mg tablet 5 mg PO DAILY Qty: 30 0RF Label Comments: TAKE 1 TABLET (10 MG) BY MOUTH ONCE DAILY. Discharge Orders: Discharge Order (Routine); Ordered 04/01/22 Ordered By: Austen Banks Activity Restrictions/Additional Instructions: You have had multiple changes to your medications. See your doctor this next week to recheck your blood pressure, pulse, electrolytes. You will probable need changes to your medications. Activity Level: Activity as Tolerated Discharge Diet: Regular Diet Detail: You may drink according to your thirst. Follow Up Appointments: Samantha Branch MD [Primary Care Provider] - (appointment in 4-6 days. Check basic metabolic panel in 4-6 days) Forms: [employer] Info Instructions
== END 2022-04-01 18:00 | disposition home or self-care (01) | DRG 308 ==
LOC: ED 19:12 → MEDSURG 20:18
PROVIDERS: Family Medicine; Internal Medicine; Admitting Provider Family Medicine; Emergency Provider Emergency Medicine Emergency Medical Services; PCP Family Medicine; Visit Provider Family Medicine
DX: I48.91 Unspecified atrial fibrillation (principal); I50.31 Acute diastolic (congestive) heart failure; E87.1 Hypo-osmolality and hyponatremia; I50.30 Unspecified diastolic (congestive) heart failure; I11.0 Hypertensive heart disease with heart failure; I95.89 Other hypotension; G89.29 Other chronic pain; M54.9 Dorsalgia, unspecified; K58.9 Irritable bowel syndrome, unspecified; I05.9 Rheumatic mitral valve disease, unspecified; M51.36 Other intervertebral disc degeneration, lumbar region
CPT/HCPCS: 36415; 80048; 80069; 83036; 83735; 83880; 84295; 84443; 84484; 85018; 85025; 85610; 87635; 93005; 93306; 97116; 97161; 97530; 99284; 99285; G0378; A9270; J1940; J7120

== ENCOUNTER 2022-04-16 11:06 | Emergency (ER) | payer MEDICARE, BC, SELFPAY ==
[2022-04-16 11:16] VITALS: BP 136/81; PULSE 120; RESP 18; TEMP 36.1; O2SAT 98; BMI 24.9
--- NOTE | 2022-04-16 11:42 | CRLHL7_ITS ---
For Patients: As a result of the Cures Act, medical imaging exams and procedure reports are released immediately into your electronic medical record. You may view this report before your referring provider. If you have questions, please contact your health care provider. HISTORY: Weakness. Tachycardia. TECHNIQUE: Portable frontal view the chest. COMPARISON: None. FINDINGS: No consolidation. No pleural effusion or pneumothorax. Pulmonary vasculature and cardiomediastinal silhouette are unremarkable. Fusion hardware in the upper lumbar spine. IMPRESSION: No cardiopulmonary abnormality. Dictated by Alexandr Bui MD @ 04/16/2022 1:20:49 PM (Electronically Signed)
--- NOTE | 2022-04-16 11:50 | ED_ITS ---
HPI - General Adult General Date Seen: 04/16/22 Chief complaint: Weakness Stated complaint: High Pulse and weakness Time Seen by Provider: 04/16/22 11:09 Source: patient and family History of Present Illness HPI narrative: Patient is an 86-year-old woman who was admitted here the beginning of March with new onset atrial fibrillation rapid ventricular response as well as hyponatremia. she had been on Lasix, that was discontinued in light of her hyponatremia. She is now on torsemide. Continues to have some lower extremity edema although it is not significantly worse. it was somewhat difficult it sounds like to control her rate, and she had been on metoprolol as well as diltiazem, but then developed some difficulty with hypotension. She seen Dr. Branch twice since leaving the hospital, most recently last Sunday. At that time, her metoprolol was discontinued, and she was started on digoxin on recommendation of Cardiology. She is currently taking 125 mcg. Her last dose of metoprolol was on Sunday morning. Diltiazem was continued at the same dose. Salt tablets were discontinued on Sunday as well. She presents on Sunday to the ER noting increased heart rate today. She has felt a little increasingly shaky over the past day or 2. She has had some dyspnea on exertion over the past few days. She has not had any chest pain. She has not had any lightheadedness or fainting. She denies any other symptoms such as vomiting or diarrhea, she has not had black or bloody stools, fevers, cough. She does live independently, her daughter who is here with her lives 1 mi away. She is on Xarelto. No falls or trauma. Related Data Home Medications Medication Instructions Recorded Confirmed hydrocodone 7.5 mg-acetaminophen 1 tab PO QID PRN 03/29/22 03/29/22 325 mg tablet levothyroxine 75 mcg tablet 75 mcg PO DAILY 03/29/22 03/29/22 prednisolone acetate 1 % eye 1 drp ophthalmic (eye) DAILY 03/29/22 03/29/22 drops,suspension pregabalin 75 mg capsule 75 mg PO TID 03/29/22 03/30/22 Previous Rx's Medication Instructions Recorded diltiazem HCl 120 mg capsule,24 120 mg PO DAILY #30 caps 04/01/22 hr,extended release lisinopril 10 mg tablet 5 mg PO DAILY #30 tabs 04/01/22 metoprolol succinate 100 mg 50 mg PO DAILY #30 tabs 04/01/22 tablet,extended release 24 hr rivaroxaban 10 mg tablet (Xarelto) 20 mg PO DAILY@1800 #30 tabs 04/01/22 sodium chloride 1,000 mg soluble 1,000 mg PO BIDWMEAL #60 tabs 04/01/22 tablet torsemide 20 mg tablet 20 mg PO DAILY #30 tabs 04/01/22 Allergies Allergy/AdvReac Type Severity Reaction Status Date / Time cefdinir [From Omnicef] Allergy Unknown Verified 03/29/22 20:10 ciprofloxacin [From Cipro] Allergy Verified 03/29/22 17:42 gabapentin Allergy Verified 03/29/22 17:42 minocycline [From Minocin] Allergy Verified 03/29/22 17:42 Review of Systems Status of ROS: Reports: 10 or more systems reviewed and unremarkable except as noted in History and below [facility] Medical History Atrial fibrillation Chronic back pain greater than 3 months duration Congestive heart failure (CHF) DDD (degenerative disc disease) Diastolic congestive heart failure, NYHA class 3 Edema Hypertension IBS (irritable bowel syndrome) Mitral valve disorder Osteoporosis Surgical History S/P lumbar fusion Social History Highest level of school completed/degree received: Bachelor's degree Smoking Status: Former smoker Do you use any of these nicotine containing products: None Second hand tobacco smoke exposure: No How often do you have a drink containing alcohol: never AUDIT-C Alcohol total score: 0 Non-prescribed substance use: denies use Caffeine: Yes (1 cup coffee in AM) service: No Exam Narrative: Exam Narrative: Vital signs as noted above. In general, an alert, Nontoxic elderly woman. Breathing easily. Head: Normocephalic, atraumatic. Eyes: Pupils are equal reactive. Extraocular movements are full. Conjunctivae are normal. ENT: Mucous membranes are moist. Neck: Supple without lymphadenopathy. Heart: Tachycardic, irregularly irregular. Lungs: Clear bilaterally. No increased work of breathing, crackles or wheezes. Abdomen: Soft and nontender. No organomegaly. Extremities: Well perfused. Moderate bilateral Pre tibial edema. no calf tenderness. She had beige compression stockings on, I did not remove these. Neurologic: Patient is alert and oriented to person and place. Speech is fluent. Face is symmetric. Moves all extremities equally. Affect: Normal. Skin: Warm and dry. Well perfused. Const: Vital Signs, click to edit/add: Vital Signs - 24 hr 04/16/22 11:16 04/16/22 13:30 Temperature 96.9 F L Pulse Rate [Right Pulse Oximeter] 120 H 81 Respiratory Rate 18 13 Blood Pressure [Le ft Upper Arm] 136/81 111/92 H Pulse Oximetry 98 98 Oxygen Delivery Me thod Room Air Room Air Documenting provider has reviewed patient's vital signs: yes Course Course Hospital Course: patient was maintained on monitor and oximetry. She had an EKG which by my review showed atrial fibrillation, ventricular rate of 99 an EKG. On the monitor, she bounced around between the 90s and 1 teens. Occasionally into the 120s. The computer read on the EKG is an accelerated junctional rhythm, I disagree with this. She does have frequent PVCs noted. No acute ST segment changes. I reviewed her previous records include her recent hospitalization. Overall clinically she looks well at this time, I do not see evidence of significant pulmonary edema on exam although she does have what seems to be stable lower extremity edema. Her primary problem seems to be at this time poor heart rate control. This may be due to her recent medication change. I am going to check a digital level, will check some basic labs as well as a troponin. Her lungs are clear, but she is complaining of some dyspnea on exertion. Will check a BNP and chest x-ray to assess for worsening congestive heart failure. I gave her 250 mL of normal saline IV. Whether because of this or simply time, her heart rate did come down into the 70's and 80s. A chest x-ray by my review did not show significant pulmonary edema. Final radiology report was likewise unremarkable. Labs showed a normal white blood cell count, normal hemoglobin. Her sodium today is 138. BUN creatinine are normal. BNP is 2250, up from her hospital discharge . However, in the absence of lung findings or pulmonary edema on chest x-ray, I think this is of minimal clinical significance right now. Her salt tablets have been discontinued, she will continue on her torsemide, will see how she does with diuresis with that. She has an appointment on with her clinic to get labs recheck. I did check a dig level, this came back at 0.6. She is not surprisingly slightly subtherapeutic, but she has only been on it for a little over 24 hours. She just discontinued her metoprolol. I suspect that she is just having some rebound from discontinue her beta-livier, while not being quite therapeutic on her dig. I think for now makes most sense just to continue her current medications, and see how she does over the next couple of days. She is feeling well at this point. If she is h aving periods where her heart rate is faster, I have asked her to check in with her primary doctor, it may be that if there is room with her blood pressure she could take a periodic dose of the short-acting calcium channel livier to help control that. My hope is that as she is a little more time the digoxin that her heart rate will be more consistently controlled. Certainly if she has more sign ificant symptoms with increased heart rate I would want her to return to the emergency department. She and her daughter are comfortable with that plan. Vital Signs Vital signs: Initial Vital Signs Temperature 96.9 F L 04/16/22 11:16 Temperature Source Temporal Artery Scan 04/16/22 11:16 Pulse Rate 120 H 04/16/22 11:16 Pulse Rhythm 04/16/22 11:16 Respiratory Rate 18 04/16/22 11:16 Blood Pressure 136/81 04/16/22 11:16 Blood Pressure Mean 99 04/16/22 11:16 Blood Pressure Position Sitting 04/16/22 11:16 Pulse Oximetry 98 04/16/22 11:16 Oxygen Delivery Method 04/16/22 11:16 Vital Signs Temperature 96.9 F L 04/16/22 11:16 Pulse Rate 120 H 04/16/22 11:16 Respiratory Rate 18 04/16/22 11:16 Blood Pressure 136/81 04/16/22 11:16 Pulse Oximetry 98 04/16/22 11:16 Oxygen Delivery Method 04/16/22 11:16 Temperature 96.9 F L 04/16/22 11:16 Pulse Rate 81 04/16/22 13:30 Respiratory Rate 13 04/16/22 13:30 Blood Pressure 111/92 H 04/16/22 13:30 Pulse Oximetry 98 04/16/22 13:30 Oxygen Delivery Method 04/16/22 13:30 Medical Decision Making Lab Data Labs: Lab Results 04/16/22 04/16/22 04/16/22 Range/Units 12:00 12:00 12:00 WBC 7.40 (4.50-11.00) K/uL RBC 4.95 (4.00-5.20) m/uL Hgb 14.5 (12.0-16.0) gm/dL Hct 43.8 (33.0-51.0) % MCV 89 (80-100) fL MCH 29 (26-34) pg MCHC 33 (32-36) gm/dL RDW Coeff of Ilsa 13.2 (11.5-15.5) % Plt Count 201 (140-440) K/uL Neut % (Auto) 71.9 (42.0-72.0) % Lymph % (Auto) 11.6 L (20-44) % [place] % (Auto) 13.9 H (0.0-11.0) % Eos % (Auto) 1.8 (0.0-7.0) % Baso % (Auto) 0.7 (0.0-3.0) % Neut # (Auto) 5.32 (1.7-7.0) K/uL Lymph # (Auto) 0.90 (0.90-2.90) K/uL [place] # (Auto) 1.00 H (0.00-0.90) K/UL Eos # (Auto) 0.13 (0.00-0.50) K/uL Baso # (Auto) 0.05 (0.00-0.30) K/uL Abs Immat Gran (auto) 0.01 (0.00-0.30) K/uL Sodium 138 (135-149) mmol/L Potassium 3.8 (3.6-5.1) mmol/L Chloride 100 (96-114) mmol/L Carbon Dioxide 30 (20-32) mmol/L BUN 17 (7-30) mg/dL Creatinine 0.8 (0.5-1.5) mg/dL Estimated Creat Clear 31.94 Estimated GFR 72 ml/min Glucose 122 H (60-115) mg/dL Calcium 9.4 (8.4-10.6) mg/dL Troponin I (0.01-0.04) ng/mL NT-Pro-B Natriuret Pep 2250 H (0-450) PG/mL Digoxin 0.6 L (0.8-2.0) ng/mL 04/16/22 Range/Units 12:00 WBC (4.50-11.00) K/uL RBC (4.00-5.20) m/uL Hgb (12.0-16.0) gm/dL Hct (33.0-51.0) % MCV (80-100) fL MCH (26-34) pg MCHC (32-36) gm/dL RDW Coeff of Ilsa (11.5-15.5) % Plt Count (140-440) K/uL Neut % (Auto) (42.0-72.0) % Lymph % (Auto) (20-44) % [place] % (Auto) (0.0-11.0) % Eos % (Auto) (0.0-7.0) % Baso % (Auto) (0.0-3.0) % Neut # (Auto) (1.7-7.0) K/uL Lymph # (Auto) (0.90-2.90) K/uL [place] # (Auto) (0.00-0.90) K/UL Eos # (Auto) (0.00-0.50) K/uL Baso # (Auto) (0.00-0.30) K/uL Abs Immat Gran (auto) (0.00-0.30) K/uL Sodium (135-149) mmol/L Potassium (3.6-5.1) mmol/L Chloride (96-114) mmol/L Carbon Dioxide (20-32) mmol/L BUN (7-30) mg/dL Creatinine (0.5-1.5) mg/dL Estimated Creat Clear Estimated GFR ml/min Glucose (60-115) mg/dL Calcium (8.4-10.6) mg/dL Troponin I < 0.01 L (0.01-0.04) ng/mL NT-Pro-B Natriuret Pep (0-450) PG/mL Digoxin (0.8-2.0) ng/mL Discharge Plan Discharge Clinical Impression: Atrial fibrillation with rapid ventricular response Patient Disposition: Home, Self-Care Condition: Improved Instructions: A-fib (Atrial Fibrillation) (ED) Additional Instructions: continue current medications. Check in with your doctor by phone tomorrow if you are continuing to have periods of faster heart rate. If you are significantly symptomatic from this, return to the emergency department at any time. Prescriptions: No Action hydrocodone-acetaminophen 7.5-325 mg tablet 1 tab PO QID PRN Label Comments: TAKE ONE TABLET BY MOUTH UP TO FOUR TIMES A DAY NEEDED FOR PAIN - MAX ACETAMINOPHEN DOSE: 4000MG IN 24 HRS. levothyroxine 75 mcg tablet 75 mcg PO DAILY Label Comments: TAKE 1 TABLET (75 MCG) BY MOUTH BEFORE BREAKFAST. prednisolone acetate 1 % drops,suspension 1 drp OPHTHALMIC (EYE) DAILY Label Comments: INSTILL 1 DROP INTO BOTH EYES ONCE EVERY OTHER DAY pregabalin 75 mg capsule 75 mg PO TID Label Comments: TAKE ONE CAPSULE BY MOUTH THREE TIMES DAILY diltiazem HCl 120 mg capsule,extended release 24 hr 120 mg PO DAILY Qty: 30 2RF Xarelto 10 mg Tablet 20 mg PO DAILY@1800 Qty: 30 0RF sodium chloride 1,000 mg Tablet,Soluble 1,000 mg PO BIDWMEAL Qty: 60 0RF torsemide 20 mg Tablet 20 mg PO DAILY Qty: 30 0RF metoprolol succinate 100 mg tablet extended release 24 hr 50 mg PO DAILY Qty: 30 0RF Label Comments: TAKE 1 TABLET (100 MG) BY MOUTH ONCE DAILY. lisinopril 10 mg tablet 5 mg PO DAILY Qty: 30 0RF Label Comments: TAKE 1 TABLET (10 MG) BY MOUTH ONCE DAILY. Follow Up/Referrals: Samantha Branch MD [Primary Care Provider] - Stand Alone Forms: [facility] Info Instructions
[2022-04-16] MEDS: 0.9 % SODIUM CHLORIDE 250 ml 250 ML IV (12:00)
[2022-04-16 12:16] LABS: Basophils Absolute Auto 0.05 K/uL (0.00-0.30); Basophils Percent Auto 0.7 % (0.0-3.0); Eosinophils Absolute Auto 0.13 K/uL (0.00-0.50); Eosinophils Percent Auto 1.8 % (0.0-7.0); Hematocrit 43.8 % (33.0-51.0); Hemoglobin* 14.5 gm/dL (12.0-16.0); Immature Granulocytes Abs Auto 0.01 K/uL (0.00-0.30); Lymphocytes Percent Auto 11.6 % (20-44); Mean Corpuscular HGB Conc 33 gm/dL (32-36); Mean Corpuscular Hemoglobin 29 pg (26-34); Mean Corpuscular Volume 89 fL (80-100); Monocytes Percent Auto 13.9 % (0.0-11.0); Neutrophils Absolute Auto 5.32 K/uL (1.7-7.0); Neutrophils Percent Auto 71.9 % (42.0-72.0); Platelet Count* 201 K/uL (140-440); RDW Coefficient of Variation % 13.2 % (11.5-15.5); Red Blood Count 4.95 m/uL (4.00-5.20)
[2022-04-16 12:17] LABS: Slide Review Reflex No
[2022-04-16 12:30] LABS: Chloride* 100 mmol/L (96-114); Potassium* 3.8 mmol/L (3.6-5.1); Sodium* 138 mmol/L (135-149)
[2022-04-16 12:32] LABS: Creatinine* 0.8 mg/dL (0.5-1.5); Est. Creatinine Clearance* 31.94; Estimated Glomerular Filt Rate 72 ml/min
[2022-04-16 12:33] LABS: Blood Urea Nitrogen* 17 mg/dL (7-30); Calcium* 9.4 mg/dL (8.4-10.6); Carbon Dioxide* 30 mmol/L (20-32); Glucose* 122 mg/dL (60-115)
[2022-04-16 12:42] LABS: NT Pro B Type NatriureticPept* 2250 PG/mL (0-450)
[2022-04-16 12:47] LABS: Troponin I* < 0.01 ng/mL (0.01-0.04)
[2022-04-16 13:30] VITALS: BP 111/92; PULSE 81; RESP 13; O2SAT 98
[2022-04-16 13:56] LABS: Digoxin* 0.6 ng/mL (0.8-2.0)
[2022-04-16] MEDS: HYDROCODONE/ACETAMIN 7.5-325 TABLET 1 TAB PO (13:58)
[2022-04-16 15:35] VITALS: BP 116/61; PULSE 81; RESP 13; O2SAT 97
[2022-04-16 15:42] VITALS: BP 115/61; PULSE 81; RESP 13; TEMP 36.1
== END 2022-04-16 15:45 | disposition home or self-care (01) ==
PROVIDERS: Emergency Provider Emergency Medicine; PCP Family Medicine
DX: I48.0 Paroxysmal atrial fibrillation (principal)
CPT/HCPCS: 36415; 71045; 80048; 80162; 83880; 84484; 85025; 93005; 99284; A9270; J7050

== ENCOUNTER 2022-06-01 13:41 | Outpatient (RCR) | payer SELFPAY | END 2022-09-14 12:50 | disposition home or self-care (01) | LOC: MOW 13:41 | PROVIDERS: PCP Family Medicine; Visit Provider Family Medicine | DX: Z76.0 Encounter for issue of repeat prescription (principal) | CPT/HCPCS: S5170 ==